=== PATIENT | male | born 1975 | race African-American/Black ===

== ENCOUNTER → 2019-07-07 | Outpatient (CLI) | payer OTHER ==
[~2019-07-07] MED LIST: NORCO 5-325 TA1 EACH PO
== END ==
LOC: SJCVCIMAG 06-26 14:08
DX: I11.9 Hypertensive heart disease without heart failure (principal); I42.8 Other cardiomyopathies; E11.9 Type 2 diabetes mellitus without complications; E78.2 Mixed hyperlipidemia; G47.33 Obstructive sleep apnea (adult) (pediatric)

== ENCOUNTER 2019-08-14 06:17 | Observation (INO) | payer OTHER ==
[2019-08-14] VITALS (11 sets, daily range): BP systolic 145–166; BP diastolic 84–110
[~2019-08-14] VITALS: Ht 190.5 cm; Wt 170.1 kg
[2019-08-14 07:13] LABS: HEMOGLOBIN 14.2 gm/dL (14.0-18.0); MCH 28.3 pg (26.0-34.0); MCHC 33.1 g/dL (28.0-37.0); MCV 85.6 fL (80.0-100.0); RBC 5.02 mil/uL (4.50-6.00); RDW 15.1 % (10.5-14.5)
[2019-08-14 07:20] LABS: CALCIUM 9.2 mg/dL (8.5-10.1); CREATININE 1.2 mg/dL (0.7-1.3); POTASSIUM 4.1 mmol/L (3.5-5.1)
[2019-08-14 07:25] LABS: ALBUMIN 3.5 g/dL (3.4-5.0); TOTAL BILIRUBIN 0.5 mg/dL (<0.1-1.0); TOTAL PROTEIN 7.2 g/dL (6.4-8.2)
[2019-08-14 07:29] LABS: APTT 30.6 Seconds (24.5-32.8); PROTIME 10.5 Seconds (9.3-11.4)
[2019-08-14] MEDS ORDERED: ASA81BEC PO (07:35)
[2019-08-14] MEDS ORDERED: LIPITOR40 MG PO (07:36)
[2019-08-14] MEDS ORDERED: EDARBI40 MG PO (07:36)
[2019-08-14] MEDS ORDERED: METFORMIN HCL500 M3 PO (07:37)
[2019-08-14] MEDS ORDERED: TOPROL XL25 MG PO (07:37)
[2019-08-14] MEDS ORDERED: SPIRONOLACTONE25 MG PO (07:37)
[2019-08-14] MEDS ORDERED: TORSEMIDE20 MG PO (07:38)
--- NOTE | 2019-08-14 16:44 | P ---
[facility] [place] [address] PROCEDURE REPORT Name: RANGEL LAMA Room #: 218-P [facility] IN M.R.#: [id number] Admission: 08/14/19 Attend Phys: Terry Nick MD Discharge: Date of : 71 Report #: [id number] THIS REPORT FOR: cc: LEONEL - Brenna family physician/PCP LEONEL - Brenna family physician/PCP Terry Nick MD ~ CC: LEONEL physician/PCP Terry Nick DATE OF SERVICE: 08/14/2019 ICD IMPLANTATION PREOPERATIVE DIAGNOSES: Nonischemic cardiomyopathy. PROCEDURES PERFORMED: ICD implantation. HISTORY: The patient is a 44-year-old with a history of longstanding nonischemic cardiomyopathy, EF of less than 35% with [place] [employer] functional class 2-3 heart failure symptoms, who has been on optimal medical therapy and is here for ICD implantation for primary prevention of sudden cardiac . ANESTHESIA: The patient had a lot of problems with coughing and secretions and therefore had a LMA placed and did fine with anesthesia throughout the procedure with no issues. DESCRIPTION OF PROCEDURE: The patient underwent informed consent. We discussed the details of the procedure including the risks, which include but not limited to bleeding, infection, vascular damage, cardiac perforation, and pneumothorax. He understood these risks and is willing to proceed. The patient was brought to the EP laboratory in a fasting and sedated state, prepped and draped in a sterile fashion. He underwent an initial venogram showing patency of the left axillary vein. Next, I injected lidocaine at the incision site. Incision was made, pocket was created over the prepectoral fascia. I attempted to obtain access to left axillary vein, a second venogram was performed to ensure the location and the patient was quite obese, so it is hard to determine how deep to go. After the second venogram, I got into the vein with no issues, then placed a guidewire into the right atrium. Sheath was positioned using the modified Seldinger technique. Next, a lead was positioned in the right ventricular apex with adequate pacing and sensing thresholds. Given his morbid obesity, I did place the lead deep into the heart to ensure that he has adequate slack when he stands up. The lead was sutured to the prepectoral fascia. The device was connected, tested and found to be functioning normally. Of note, an atrial pin was placed in the atrial port. [address] [address] PROCEDURE REPORT Name: RANGEL LAMA Room #: 218-P [facility] IN .R.#: [id number] Admission: 08/14/19 Attend Phys: Terry Nick MD Discharge: Date of : 71 Report #: [id number] The patient will need a single chamber device. The pocket was then irrigated with vancomycin and closed in 2 layers and surgical glue was placed to the outer skin layers. The patient awoke neurologically and hemodynamically intact. No complications and no significant bleeding. The implanted device was a [employer], Evera, model #NLMY7E4, serial # [id number]. The lead was a [employer]onic model #6947, 62 cm, serial #[id number]. This lead demonstrated R-wave of 11.9 millivolts, pacing impedance of 537 ohms and pacing threshold 0.4 volts at 0.5 milliseconds. The device was programmed to VVI mode. VT zone was set at 180-220 beats per minute with __ followed by ramp x 3 followed by max output shocks. The VF zone was set at greater than 220 beats per minute with ATP charging followed by max output shocks. CONCLUSIONS: 1. Successful single chamber ICD implantation. 2. Satisfactory right ventricular pacing and sensing thresholds. <ELECTRONICALLY SIGNED> By: Terry Nick MD 08/14/19 [id number] Terry Nick MD /nt
--- NOTE | 2019-08-14 16:54 | NUR ---
PT CARE ASSUMED APPROX 1130. ASSESSMENTS CHARTED. PT DENIES PAIN AND SOA. BP ELEVATED EARLIER THIS SHIFT. DR CISNEROS CALLED FOR ORDERS AND BP RESPONDING TO MEDS GIVEN. WILL CONTINUE TO MONITOR. VS OTHERWISE STABLE. PT COMPLIANT WITH LUE IMMOBILITY AND BEDREST. PT DENIES QUESTIONS OR CONCERNS REGARDING POC. FAMILY AT BEDSIDE. LEFT CHEST INCISION C/D/I. NO DISTRESS NOTED.
[2019-08-15 02:00] VITALS: BP 166/106
--- NOTE | 2019-08-15 03:43 | NUR ---
ASSESSMENT DOCUMENTED.PT BEEN RESTING IN NO ACUTE DISTRESS.A/OX4.VSS.S/P ICD PLACEMENT.LEFT CHEST INCISION ALEKSANDRA CLOSED W/DERMABOND.IMMOBILIZER IN PLACE.BRP OTHERWISE BEEN ON BEDREST.DENIES PAIN OR ANY CONCERNS.POC IS TO HAVE ICD CHECK AND XRAY THIS AM WITH POSSIBLE DISCHARGE TO HOME.WILL CONT TO MONITOR PER POC.
[2019-08-15 03:47] VITALS: BP 151/96
[2019-08-15 07:27] VITALS: BP 156/93
--- NOTE | 2019-08-15 08:02 | NUR ---
ASSUMED CARE OF PT AT SHIFT CHANGE, LEFT FOR CXRY AT 0750, WILL INTRO SELF TO PT AND GIVE HIM EDUCATION ON D/C PROCESS. SEE SEPARATE INTERVENTIONS FOR ASSESSMENTS.
[2019-08-15 09:17] VITALS: BP 156/93
--- NOTE | 2019-08-15 09:40 | NUR ---
PT CARE ASSUMED APPROX 0900. PT DISCHARGING AT THIS TIME. DENIES PAIN AND SOA. VSS. DISCHARGE EDUCATION DONE WITH PT AND SPOUSE WITH CV PROMOTIONAL MODEL AND DR WELL THIS NURSE. PT AND SPOUSE DENY QUESTIONS AND CONCERNS REGARDING [facility] CARES, F/U AND SITE CARE. ALL BELONGINGS IN PT POSSESSION. IV OUT, TELE OFF. HOSPITAL TRANSPORTATION TO ARRIVE AT ANY TIME TO ESCORT PT OUT VIA WHEELCHAIR.
== END 2019-08-15 10:00 | disposition home or self-care (01) ==
LOC: CATH 06:17 → 2N 11:22 → CATH 11:29 → 2N 15:12 → CATH 19:12 → ENTRNSPT 08-15 09:38 → EDTRNSPTSTS 08-15 09:51 → 2N 08-15 10:00
PROVIDERS: ADMIT Internal Medicine Cardiovascular Disease
DX: I11.9 Hypertensive heart disease without heart failure (principal); I25.5 Ischemic cardiomyopathy; I10 Essential (primary) hypertension; E78.5 Hyperlipidemia, unspecified; G47.33 Obstructive sleep apnea (adult) (pediatric)

== ENCOUNTER → 2021-01-12 | Outpatient (CLI) | payer OTHER ==
[~2021-01-12] MED LIST changes: +ASA81BEC PO; +EDARBI40 MG PO; +LIPITOR40 MG PO; +METFORMIN HCL500 M3 PO; +SPIRONOLACTONE25 MG PO; +TOPROL XL25 MG PO; +TORSEMIDE20 MG PO
== END ==
LOC: SJCVC 16:06
PROVIDERS: ATTEND Internal Medicine Cardiovascular Disease
DX: R94.31 Abnormal electrocardiogram [ECG] [EKG] (principal); T82.198A Other mechanical complication of other cardiac electronic device, initial encounter; E11.9 Type 2 diabetes mellitus without complications; G47.33 Obstructive sleep apnea (adult) (pediatric); I50.42 Chronic combined systolic (congestive) and diastolic (congestive) heart failure; E78.2 Mixed hyperlipidemia; E66.01 Morbid (severe) obesity due to excess calories; Z95.810 Presence of automatic (implantable) cardiac defibrillator; Z79.82 Long term (current) use of aspirin; Z79.84 Long term (current) use of oral hypoglycemic drugs; Z79.899 Other long term (current) drug therapy; Z82.49 Family history of ischemic heart disease and other diseases of the circulatory system; Y83.8 Other surgical procedures as the cause of abnormal reaction of the patient, or of later complication, without mention of misadventure at the time of the procedure; Y92.89 Other specified places as the place of occurrence of the external cause